=== PATIENT | female | born 1940 | race Caucasian/White ===

== ENCOUNTER 2019-09-21 15:33 | Outpatient (CLI) | payer MEDICARE, SELFPAY ==
--- NOTE | 2019-09-21 16:28 | XR_ITS ---
WS: [id number] DEXA (DUAL ENERGY X-RAY ABSORPTIOMETRY) Bone mineral density was performed using a [employer] machine. HISTORY: POSTMENOPAUSAL COMPARISON: None available. Lumbar spine BMD (L1-L4): 1.558 g/cm2 T score: 3.2 Z score: 3.8 Total hip BMD: Left: 0.991 g/cm2. T score: -0.1 Z score: 1.0 Right: 1.142 g/cm2. T score: 1.1 Z score: 2.2 10 year probability of a major osteoporotic fracture is 8%. XR/XR DEXA axial skeleton* [id number] IMPRESSION: NORMAL BONE MINERAL DENSITY based upon the WHO classification for females.
== END 2019-09-21 15:34 | disposition home or self-care (01) ==
LOC: RADWPI 15:40
PROVIDERS: Family Provider Family Medicine; PCP Family Medicine; Visit Provider Nurse Practitioner
DX: Z78.0 Asymptomatic menopausal state (principal)
CPT/HCPCS: 77080

== ENCOUNTER → 2020-07-27 09:00 | Outpatient (BNVA) | payer MEDICARE, SELFPAY | PROVIDERS: Family Provider Family Medicine; PCP Family Medicine; Referring Provider Family Medicine; Visit Provider Specialist | DX: M25.569 Pain in unspecified knee (principal); M25.561 Pain in right knee; Z96.651 Presence of right artificial knee joint | CPT/HCPCS: 73560; 73565 ==

== ENCOUNTER → 2022-11-14 15:18 | Outpatient (BNVA) | payer MEDICARE, SELFPAY | PROVIDERS: Family Provider Family Medicine; PCP Family Medicine; Visit Provider Dermatology | DX: L82.1 Other seborrheic keratosis (principal); L81.4 Other melanin hyperpigmentation; D22.62 Melanocytic nevi of left upper limb, including shoulder; D69.2 Other nonthrombocytopenic purpura; I83.12 Varicose veins of left lower extremity with inflammation | CPT/HCPCS: 99213 ==

== ENCOUNTER 2022-12-24 10:56 | Outpatient (CLI) | payer MEDICARE, SELFPAY ==
--- NOTE | 2022-12-24 11:00 | MM_ITS ---
WS: [id number] VIEWS: MLO and CC views both breasts. 3D digital tomosynthesis is also included in this exam. Comparison made with prior exam of 12/25/2005, 12/30/2006, 01/01/2008, 01/04/2009, 01/09/2010, 011, 01/24/2012, 01/25/2013, 01/26/2014, 01/27/2015, 01/30/2016, Findings: There was no sign of mass, architectural distortion or suspicious calcification in either breast. Sta ble appearing nodular densities in both breasts. There are scattered areas of fibroglandular density. Impression: MM/[place] [id number] BI-RADS: 2-Benign finding. FOLLOW-UP: 1 Year Follow-up This mammogram was also analyzed by the Computer [employer] Extension Service Agent.
== END 2022-12-24 10:57 | disposition home or self-care (01) ==
LOC: MOBLMAM 10:59
PROVIDERS: Family Provider Family Medicine; PCP Family Medicine; Visit Provider Family Medicine
DX: Z12.31 Encounter for screening mammogram for malignant neoplasm of breast (principal)
CPT/HCPCS: 77063; 77067

== ENCOUNTER → 2023-11-18 10:12 | Outpatient (BNVA) | payer MEDICARE, SELFPAY | PROVIDERS: Family Provider Family Medicine; PCP Family Medicine; Visit Provider Nurse Practitioner Family | DX: L57.0 Actinic keratosis (principal); F42.4 Excoriation (skin-picking) disorder; L81.4 Other melanin hyperpigmentation; M79.3 Panniculitis, unspecified; L82.1 Other seborrheic keratosis; Z86.006 Personal history of melanoma in-situ; D69.2 Other nonthrombocytopenic purpura | CPT/HCPCS: 17000; 99213 ==

== ENCOUNTER → 2023-12-04 10:20 | Outpatient (BNVA) | payer MEDICARE, SELFPAY | PROVIDERS: Family Provider Family Medicine; PCP Family Medicine; Visit Provider Nurse Practitioner Family | DX: F42.4 Excoriation (skin-picking) disorder (principal); L82.1 Other seborrheic keratosis; Z86.006 Personal history of melanoma in-situ | CPT/HCPCS: 99213 ==

== ENCOUNTER 2024-01-27 13:43 | Outpatient (CLI) | payer MEDICARE, SELFPAY ==
--- NOTE | 2024-01-27 13:40 | MM_ITS ---
WS: [id number] BILATERAL 3D TOMOSYNTHESIS DIGITAL SCREENING MAMMOGRAPHY WITH CAD CLINICAL INFORMATION: SCREENING HISTORY: Screening mammogram. No current complaints. COMPARISON: 2022 TECHNIQUE: Bilateral CC and MLO views. FINDINGS: The breasts are composed of heterogeneous fibroglandular density tissue, which can limit the detectio n of small underlying mass lesions. Nodular density anterior LEFT breast measuring 3 mm near the 6 o' clock position on the tomosynthesis imaging. This is only well seen on the cc view. Recommend further evaluation with LEFT breast diagnostic mammography and ultrasound. MM/MM [facility] tomosynthesis [id number] IMPRESSION: DENSITY: The breasts are heterogeneously dense, which may obscure small masses. BI-RADS: 0 - Incomplete: Need additional imaging evaluation FOLLOW UP: Need Additional Imaging Recommend LEFT breast diagnostic mammography and ultrasound.
== END 2024-01-27 13:44 | disposition home or self-care (01) ==
LOC: MOBLMAM 13:46
PROVIDERS: Family Provider Family Medicine; PCP Family Medicine; Visit Provider Family Medicine
DX: Z12.31 Encounter for screening mammogram for malignant neoplasm of breast (principal); R92.333 Mammographic heterogeneous density, bilateral breasts; N63.24 Unspecified lump in the left breast, lower inner quadrant
CPT/HCPCS: 77063; 77067

== ENCOUNTER 2024-03-04 10:16 | Outpatient (CLI) | payer MEDICARE, SELFPAY ==
--- NOTE | 2024-03-04 10:27 | MM_ITS ---
WS: [id number] LEFT 3D TOMOSYNTHESIS DIGITAL MAMMOGRAPHY WITH CAD CLINICAL INFORMATION: ABNORMAL MAMMO HISTORY: Additional views COMPARISON: 01/27/2024 TECHNIQUE: 3 views of the left breast were obtained. FINDINGS: Scattered fibroglandular densities of the left breast. Previously described tiny nodular density ante rior LEFT breast compresses out today on the spot compression views. No suspicious abnormalities. Rec ommend return to annual screening mammography. MM/MM diag LT tomosynthesis [id number] IMPRESSION: DENSITY: There are scattered areas of fibroglandular density. BI-RADS: 2 - Benign. FOLLOW UP: 1 Year Follow-up Recommend return to annual screening mammography.
== END 2024-03-04 10:17 | disposition home or self-care (01) ==
LOC: RAD 10:20
PROVIDERS: Family Provider Family Medicine; PCP Family Medicine; Visit Provider Family Medicine
DX: R92.8 Other abnormal and inconclusive findings on diagnostic imaging of breast (principal); R92.322 Mammographic fibroglandular density, left breast
CPT/HCPCS: 77061; G0279

== ENCOUNTER → 2024-06-03 09:52 | Outpatient (BNVA) | payer MEDICARE, SELFPAY | PROVIDERS: Family Provider Family Medicine; PCP Family Medicine; Visit Provider Nurse Practitioner Family | DX: S90.912A Unspecified superficial injury of left ankle, initial encounter (principal); L97.819 Non-pressure chronic ulcer of other part of right lower leg with unspecified severity; I83.018 Varicose veins of right lower extremity with ulcer other part of lower leg; S30.861A Insect bite (nonvenomous) of abdominal wall, initial encounter; L82.1 Other seborrheic keratosis; D18.01 Hemangioma of skin and subcutaneous tissue; Z08 Encounter for follow-up examination after completed treatment for malignant neoplasm; Z86.006 Personal history of melanoma in-situ; L57.0 Actinic keratosis; X58.XXXA Exposure to other specified factors, initial encounter | CPT/HCPCS: 10120; 17000; 99213 ==

== ENCOUNTER → 2024-12-06 08:54 | Outpatient (BNVA) | payer MEDICARE, SELFPAY | PROVIDERS: Family Provider Family Medicine; PCP Family Medicine; Visit Provider Specialist | DX: M17.0 Bilateral primary osteoarthritis of knee (principal); Z96.653 Presence of artificial knee joint, bilateral | CPT/HCPCS: 73560; 73565; 99214 ==